=== PATIENT | male | born 1995 | race Caucasian/White ===

== ENCOUNTER 2021-06-18 11:35 | Inpatient (IN) | payer OTHER ==
[2021-06-18 14:38] VITALS: BMI 23.6
[2021-06-18] MEDS ORDERED: ACETAMINOPHEN 325 MG TABLET (FP) PO PRN ×2 (14:58)
[2021-06-18] MEDS ORDERED: BISMUTH SUBSALICYLATE 524 MG/30 ML PO PRN (14:58)
[2021-06-18] MEDS ORDERED: MENTHOL/PHENOL 1 EACH UD MM PRN (14:58)
[2021-06-18] MEDS ORDERED: MAGNESIUM CITRATE 300 ML BOTTLE PO PRN (14:58)
[2021-06-18] MEDS ORDERED: ONDANSETRON *ODT* 4 MG TABLET SL PRN (14:58)
[2021-06-18] MEDS ORDERED: MAGNESIUM HYDROX 2400MG/30ML ORAL SUSPENSION 30 ML CUP PO PRN (14:58)
[2021-06-18] MEDS ORDERED: IBUPROFEN 400 MG TABLET (FP) PO PRN (14:58)
[2021-06-18] MEDS ORDERED: NICOTINE 10 MG CARTRIDGE (INHALER) IH PRN (14:58)
[2021-06-18] MEDS ORDERED: MAG HYDROX/AL HYDROX/SIMETH 30 ML UNIT-DOSE CUP PO PRN (14:58)
[2021-06-18] MEDS ORDERED: diazePAM 5 MG TABLET ONE (15:52)
[2021-06-18] MEDS: diazePAM 5 MG TABLET PO PRN (16:00)
[2021-06-18] MEDS: diazePAM 5 MG TABLET PO SCH ×2 (18:14→22:09)
[2021-06-18] MEDS: hydrOXYzine PAMOATE 25 MG CAPSULE (FP) PO SCH ×2 (18:14→22:09)
[2021-06-18] MEDS: PRENATAL VITAMINS W/ FOLIC ACID TABLET (FP) PO SCH (18:19)
[2021-06-18] MEDS: THIAMINE HCL 100 MG TABLET (FP) PO SCH (22:08)
[2021-06-18] MEDS: MELATONIN 5 MG TABLETS PO SCH (22:08)
[2021-06-19] MEDS: diazePAM 5 MG TABLET PO SCH ×4 (06:09→22:20)
[2021-06-19] MEDS: hydrOXYzine PAMOATE 25 MG CAPSULE (FP) PO SCH ×5 (06:09→22:20)
[2021-06-19 08:30] LABS: HEMATOCRIT 38.2 % (35.4-49); HEMOGLOBIN 13.2 GM/dL (11.7-16.9); MCH 34.7 pg (25.7-33.7); MCHC 34.5 g/dl (32.0-35.9); MEAN CELL VOLUME 100.4 fl (80-96); PLATELET COUNT 249 10^3/uL (134-434); RBC 3.81 M/mm3 (4.00-5.60); RDW 12.6 % (11.9-15.9); WHITE BLOOD COUNT 5.2 K/mm3 (4.0-10.0)
[2021-06-19 09:29] LABS: ALBUMIN 3.5 g/dl (3.4-5.0); CALCIUM 8.7 mg/dL (8.5-10.1)
[2021-06-19 09:33] LABS: CREATININE 0.7 mg/dL (0.55-1.3)
[2021-06-19 09:34] LABS: TOT PROT 6.3 g/dl (6.4-8.2)
[2021-06-19 09:39] LABS: BILIRUBIN,TOTAL 0.8 mg/dL (0.2-1)
[2021-06-19] MEDS: PRENATAL VITAMINS W/ FOLIC ACID TABLET (FP) PO SCH (10:31)
[2021-06-19 10:52] LABS: HIV INTERPRETATION NEGATIVE (NEGATIVE)
[2021-06-19] MEDS: NICOTINE 14 MG/24 HOURS TOPICAL PATCH TD SCH (11:32)
[2021-06-19] MEDS: diazePAM 5 MG TABLET PO PRN ×2 (12:32→19:19)
[2021-06-19] MEDS: METHOCARBAMOL 500 MG TABLET PO PRN (12:32)
[2021-06-19] MEDS: NICOTINE POLACRILEX 2 MG GUM BUC PRN (17:52)
[2021-06-19] MEDS: MELATONIN 5 MG TABLETS PO SCH (22:20)
[2021-06-19] MEDS: THIAMINE HCL 100 MG TABLET (FP) PO SCH (22:20)
[2021-06-20] MEDS: hydrOXYzine PAMOATE 25 MG CAPSULE (FP) PO SCH ×5 (06:00→22:14)
[2021-06-20] MEDS: diazePAM 5 MG TABLET PO SCH ×3 (06:00→22:14)
[2021-06-20] MEDS: PRENATAL VITAMINS W/ FOLIC ACID TABLET (FP) PO SCH (10:27)
[2021-06-20] MEDS: NICOTINE POLACRILEX 2 MG GUM BUC PRN (10:27)
[2021-06-20] MEDS: NICOTINE 14 MG/24 HOURS TOPICAL PATCH TD SCH (10:29)
[2021-06-20] MEDS: NICOTINE 21 MG/24 HOURS TOPICAL PATCH TD SCH (12:14)
[2021-06-20] MEDS: diazePAM 5 MG TABLET PO PRN (17:53)
[2021-06-20] MEDS: THIAMINE HCL 100 MG TABLET (FP) PO SCH (22:13)
[2021-06-20] MEDS: MELATONIN 5 MG TABLETS PO SCH (22:14)
[2021-06-21] MEDS: hydrOXYzine PAMOATE 25 MG CAPSULE (FP) PO SCH ×5 (06:04→22:06)
[2021-06-21] MEDS: diazePAM 5 MG TABLET PO SCH ×2 (06:04→17:24)
[2021-06-21] MEDS: PRENATAL VITAMINS W/ FOLIC ACID TABLET (FP) PO SCH (10:40)
[2021-06-21] MEDS: NICOTINE 21 MG/24 HOURS TOPICAL PATCH TD SCH (10:40)
[2021-06-21] MEDS: NICOTINE POLACRILEX 2 MG GUM BUC PRN (20:24)
[2021-06-21] MEDS: METHOCARBAMOL 500 MG TABLET PO PRN (22:06)
[2021-06-21] MEDS: MELATONIN 5 MG TABLETS PO SCH (22:06)
[2021-06-21] MEDS: THIAMINE HCL 100 MG TABLET (FP) PO SCH (22:06)
[2021-06-22] MEDS: hydrOXYzine PAMOATE 25 MG CAPSULE (FP) PO SCH ×5 (05:53→22:49)
[2021-06-22] MEDS ORDERED: diazePAM 5 MG TABLET PO ONE (06:00)
[2021-06-22] MEDS: PRENATAL VITAMINS W/ FOLIC ACID TABLET (FP) PO SCH (10:20)
[2021-06-22] MEDS: NICOTINE 21 MG/24 HOURS TOPICAL PATCH TD SCH (10:20)
[2021-06-22] MEDS: METHOCARBAMOL 500 MG TABLET PO PRN ×2 (13:16→19:18)
[2021-06-22] MEDS: THIAMINE HCL 100 MG TABLET (FP) PO SCH (22:49)
[2021-06-22] MEDS: MELATONIN 5 MG TABLETS PO SCH (22:50)
[2021-06-23] MEDS: hydrOXYzine PAMOATE 25 MG CAPSULE (FP) PO SCH (06:14)
[2021-06-23 07:17] VITALS: BP 104/63; PULSE 80; TEMP 98.2
== END 2021-06-23 08:41 | disposition other institution (70) | DRG 775 ==
LOC: YASAS 11:35 → Y6N 16:21
PROVIDERS: ADMIT Allergy & Immunology; ATTEND Allergy & Immunology
PROC: HZ2ZZZZ Detoxification Services for Substance Abuse Treatment (ICD-10-PCS; principal; 2021-06-18)
DX: F10.230 Alcohol dependence with withdrawal, uncomplicated (principal); F15.10 Other stimulant abuse, uncomplicated; F17.210 Nicotine dependence, cigarettes, uncomplicated; F42.9 Obsessive-compulsive disorder, unspecified; F32.9 Major depressive disorder, single episode, unspecified; R56.9 Unspecified convulsions; Z59.0 Homelessness; Z91.14 Patient's other noncompliance with medication regimen
CPT/HCPCS: 36415; 80053; 85027; 86780; 87389; C9803; U0003; U0005